=== PATIENT | male | born 1970 | race Hispanic/Latino ===

== ENCOUNTER 2018-04-05 04:46 | Emergency (ER) | payer OTHER ==
[2018-04-05] MEDS ORDERED: Adacel (T-DAP) 0.5 ML VIAL ONE (05:09)
== END 2018-04-05 05:31 | disposition home or self-care (01) ==
LOC: BURERS 04:46
DX: S01.01XA Laceration without foreign body of scalp, initial encounter (principal); W01.0XXA Fall on same level from slipping, tripping and stumbling without subsequent striking against object, initial encounter
CPT/HCPCS: 12002; 90471; 90715

== ENCOUNTER 2018-04-16 05:40 | Emergency (ER) | payer SELFPAY | END 2018-04-16 06:16 | disposition home or self-care (01) | LOC: BURERS 05:40 | DX: Z48.02 Encounter for removal of sutures (principal); F07.81 Postconcussional syndrome ==